=== PATIENT | male | born 1970 | race Caucasian/White ===

== ENCOUNTER → 2019-07-06 19:52 | Outpatient (CLI) | payer OTHER, SELFPAY ==
--- NOTE | 2019-07-06 | DI.RAD.S_ITS ---
PROCEDURE: XR ANKLE RT MIN 3V INDICATIONS: Pain, R/o Fx TECHNIQUE: 3 views of the ankle were acquired. COMPARISON: None. FINDINGS: Bones: There is articulation of medial malleolus with [address] No gross hardware loosening or failure. Age indeterminant injury involving tip of lateral malleolus is seen with curvilinear calcifications adjacent to lateral malleolus tip. Ankle mortise is normally aligned. No suspicious bony lesions. Soft tissues: No tibiotalar joint effusion. Achilles tendon appears normal. Soft tissue swelling over lateral malleolus is seen. IMPRESSION: 1. Prior fixation of medial malleolus. No gross hardware loosening or failure. 2. Age-indeterminate avulsion injury involving tip of lateral malleolus with overlying soft tissue swelling. Ankle mortise is congruent. Dictated by: Roger Jacobson M.D. on 07/06/2019 at 20:35 Approved by: Roger Jacobson M.D. on 07/06/2019 at 20:36
== END ==
DX: M25.571 Pain in right ankle and joints of right foot (principal); S99.811A Other specified injuries of right ankle, initial encounter; X58.XXXA Exposure to other specified factors, initial encounter
CPT/HCPCS: 73610

== ENCOUNTER → 2020-11-26 10:45 | Outpatient (CLI) | payer OTHER, SELFPAY ==
[2020-11-26 12:35] LABS: Cholesterol 217 mg/dL (140-199); HDL Cholesterol 53 mg/dL (40-60); LDL Cholesterol Calculated 140 mg/dL (<100); Triglycerides 119 mg/dL (35-150)
[2020-11-26 12:50] LABS: Vitamin D 25 Hydroxy (D3) 30.3 ng/mL (30.0-100.0)
== END ==
PROVIDERS: PCP Student in an Organized Health Care Education/Training Program; Referring Provider Student in an Organized Health Care Education/Training Program; Visit Provider Student in an Organized Health Care Education/Training Program
DX: E55.9 Vitamin D deficiency, unspecified (principal); Z13.220 Encounter for screening for lipoid disorders
CPT/HCPCS: 36415; 80061; 82306

== ENCOUNTER → 2020-12-31 11:51 | Outpatient (CLI) | payer OTHER, SELFPAY ==
[2020-12-31 13:19] LABS: COVID19 -Nasal RAPID Negative (Negative)
== END ==
PROVIDERS: PCP Student in an Organized Health Care Education/Training Program; Visit Provider Nurse Practitioner Family
DX: R05 Cough (principal); Z20.822 Contact with and (suspected) exposure to COVID-19
CPT/HCPCS: 87635

== ENCOUNTER 2022-11-07 10:25 | Day surgery (SDC) | payer OTHER, SELFPAY ==
[2022-11-07] VITALS (7 sets, daily range): BP systolic 86–110; BP diastolic 58–75; PULSE 49–61; RESP 10–22; TEMP 35.8–36.3; O2SAT 96–100; BMI 25.8
--- NOTE | 2022-11-07 | PATH_ITS ---
[facility] Accession Number: [id number] No. of containers..04 Tissue . 01 Material submitted: . PART A: colon - TRANSVERSE POLYP PART B: colon - ASCENDING POLYP PART C: splenic flexure - SPLENIC FLEXURE POLYP PART D: rectum - RECTAL POLYP . 01 Diagnosis: A. Transverse Colon Polyp: Tubular adenoma. . B. Ascending Colon Polyp: Sessile serrated adenoma. . C. Splenic Flexure Polyp: Sessile serrated adenoma. . D. Rectal Polyp: Tubular adenoma. [facility] 11/13/2022 1634 Local . 01 Electronically signed: . Juan Carlos Solares MD, PhD, Pathologist NPI- [id number] . 01 Gross description: . Part A: TRANSVERSE POLYP: Received in formalin is 1 fragment(s) of constantino, soft tissue measuring 1.2 x 0.4 x 0.2 cm submitted entirely in 1 cassette(s) Part B: ASCENDING POLYP: Received in formalin is 1 fragment(s) of constantino, soft tissue measuring 1.2 x 0.5 x 0.3 cm submitted entirely in 1 cassette(s) Part C: SPLENIC FLEXURE POLYP: Received in formalin is 1 fragment(s) of [place], soft tissue measuring 0.6 x 0.4 x 0.3 cm submitted entirely in 1 cassette(s) Part D: RECTAL POLYP: Received in formalin is 1 fragment(s) of constantino, soft tissue measuring 0.4 x 0.4 x 0.2 cm submitted entirely in 1 cassette(s) /[facility] 11/12/2022 1330 Local . 01 Pathologist provided ICD-10: D12.8, D12.6 . 01 CPT . 158139, 918550, [id number], [id number] Specimen Comment: A courtesy copy of this report has been sent to [facility] Pathology Performed at: [facility] [address] [facility], [place], [place] [id number] MD Asif Lino MD Phone: [phone]
[2022-11-07] MEDS: LACTATED RINGERS 1,000 ML 42 ML IV (10:45)
--- NOTE | 2022-11-07 13:37 | P.OP.COLON_ITS ---
Operative Date/Time/Diagnoses Date of procedure: 11/07/22 Time of procedure: 13:38 Pre-op diagnosis: Colonoscopy screening Post-op diagnosis: same Procedure & Clinicians Study performed: Colonoscopy and biopsy Same procedure as scheduled: Yes Indications: Screening. No family history of colon cancer Surgeon: Paula Kapoor Procedure Notes Procedure in detail: Patient was taken to the endoscopy suite and placed in left lateral decubitus po sition. A time-out was performed. With the help of anesthesiologist conscious sedation was induced and maintained throughout the case. Digital rectal exam was performed there were no masses or stricture and the prostate was smooth and normal. The colonoscope was introduced into the anal canal and advanced through in the transverse colon 1 about 6 mm polyp was removed with a snare. The scope was then advanced through to the cecum. A photograph of the appendiceal orifice was obtained. [place] bowel prep score was 3 and the prep was excellent. The scope was then withdrawn slowly for 18 minutes including biopsy time. There was ascending colon polyp that was snared and removed. It had a very sessile type of quality. And was about 9 mm in size. There was an additional polyp small polyp at the splenic flexure that was removed with the biopsy forceps. Further withdrawal of the scope scope was performed and a very tiny rectal polyp was also removed with forceps. The colonoscope was then retroflexed and the internal hemorrhoidal piles appeared normal. Patient tolerated the procedure well and went in good condition to the postoperative care unit Findings: polyp(s) Specimen(s): none sent (1. Transverse colon polyp 2. Ascending sessile polyp 3. Small splenic flexure polyp 4. Very small rectal polyp) Post-procedure Plan for aftercare: There were 4 polyps in total removed from your colon. Most likely if pathology of most of these polyps is the precancer type would then recommend a 5 year follow-up. Final recommendations for follow-up interval will be made in by mail when the pathology report returned in 1-2 weeks. I do recommend a fiber supplement for any patient with polyps.
--- NOTE | 2022-11-14 17:19 | PM.HP.1 ---
History of Present Illness History of Present Illness Date Patient Seen: 11/07/22 Chief complaint: Screening Colonscopy Narrative: Mr. Farhan allen is a 51-year-old healthy male who presents for his 1st screening colonoscopy. Has no family history of colon cancer and no concerning symptoms. Ice has no questions or concerns [facility] Medical History (Updated 11/14/22 @ 17:20 by Paula Kapoor MD) Moderate mixed hyperlipidemia not requiring statin therapy Social History household members: spouse Smoking Status: Never smoker alcohol intake: current Meds Home Medications and Allergies Home Medications Medication Instructions Recorded Confirmed Type psyllium husk (with sugar) 3.4 1 tbsp PO DAILY #1,360 grams 11/07/22 Rx gram/12 gram oral powder (Daily Fiber (psyllium-sucrose)) Allergies Allergy/AdvReac Type Severity Reaction Status Date / Time No Known Drug Allergies Allergy Verified 11/07/22 10:44 Exam Vital Signs (past 8 hours): Oxygen Delivery Method Room Air Const General: cooperative, healthy appearing and comfortable HENMT Head: normal to inspection Eyes General: appearance normal, both eyes and all related structures Resp Effort & Inspection: normal respiratory effort and able to speak in complete sentences GI Palpation: soft and No tender Assessment & Plan Assessment and plan (1) Screening for colon cancer: Status: Acute Assessment & Plan narrative: Presents today for screening colonoscopy I discussed the risks benefits and alternatives including but not limited to perforation of the colon and an incomplete exam he fully understands these risks and would like to proceed.
== END 2022-11-07 14:30 | disposition home or self-care (01) ==
PROVIDERS: PCP Student in an Organized Health Care Education/Training Program; Referring Provider Surgery; Visit Provider Surgery
PROC: 0DJD8ZZ Inspection of Lower Intestinal Tract, Via Natural or Artificial Opening Endoscopic (ICD-10-PCS; CPT 45378; principal; 2022-11-07 11:30)
DX: D12.7 Benign neoplasm of rectosigmoid junction (principal); D12.2 Benign neoplasm of ascending colon; D12.3 Benign neoplasm of transverse colon; Z12.11 Encounter for screening for malignant neoplasm of colon
CPT/HCPCS: 45385; 45380; J2250; J2704; J3010

== ENCOUNTER → 2025-03-10 15:07 | Outpatient (CLI) | payer BC, SELFPAY ==
[2025-03-10 15:24] LABS: Add Manual Diff / Slide Review NO; Hematocrit 44.5 % (41-53); Hemoglobin 15.2 g/dL (13.5-17.5); Lymphocytes Absolute Auto 1900 /uL (1100-4500); Mean Corpuscular HGB Conc 34.2 % (30-36); Mean Corpuscular Hemoglobin 29.4 PG (26-34); Mean Corpuscular Volume 86.1 fL (80-100); Platelet Count 255 X10^3/uL (150-400)
[2025-03-10 15:46] LABS: Alanine Aminotransferase 27 IU/L (<50); Albumin 5.1 g/dL (3.5-5.0); Albumin Globulin Ratio 1.8 (1.0-2.8); Alkaline Phosphatase 53 U/L (38-126); Blood Urea Nitrogen 13 mg/dL (9-20); Calcium 9.6 mg/dL (8.4-10.2); Carbon Dioxide 24 mmol/L (22-32); Chloride 104 mmol/L (98-107); Cholesterol 232 mg/dL (140-199); Estimated Glomerular Filt Rate > 60 mL/min (>60); Globulin 2.9 g/dL (1.7-4.1); Glucose 88 mg/dL (70-99); HDL Cholesterol 52 mg/dL (40-60); HEMOLYSIS < 15 (0-50); Magnesium 1.9 mg/dL (1.6-2.3); Potassium 4.2 mmol/L (3.4-5.1); Sodium 139 mmol/L (137-145); Total Protein 8.0 g/dL (6.3-8.2); Triglycerides 178 mg/dL (35-150)
[2025-03-10 16:15] LABS: TSH w/ Reflex to FT4 2.24 uIU/mL (0.47-4.68)
[2025-03-10 16:34] LABS: Vitamin B12 604 pg/mL (239-931)
== END ==
LOC: LAB 15:08
PROVIDERS: PCP Nurse Practitioner Family; Referring Provider Nurse Practitioner Family; Visit Provider Nurse Practitioner Family
DX: Z12.5 Encounter for screening for malignant neoplasm of prostate (principal); R25.1 Tremor, unspecified; R25.3 Fasciculation; R20.2 Paresthesia of skin
CPT/HCPCS: 36415; 80053; 80061; 82607; 83735; 84443; 85025; G0103